=== PATIENT | female | born 1955 | race Hispanic/Latino ===

== ENCOUNTER 2023-12-01 13:03 | Outpatient (RCR) | payer MEDICARE, SELFPAY | END 2023-12-01 23:59 | disposition home or self-care (01) | LOC: RPT 13:03 | PROVIDERS: ATTENDING PHYSICIAN Orthopaedic Surgery; FAMILY PHYSICIAN Family Medicine | DX: M54.16 Radiculopathy, lumbar region (principal); M43.16 Spondylolisthesis, lumbar region; Z73.6 Limitation of activities due to disability | CPT/HCPCS: 97110; 97112; 97140 ==

== ENCOUNTER 2023-12-29 17:50 | Outpatient (RCR) | payer MEDICARE, SELFPAY | END 2023-12-29 23:59 | disposition home or self-care (01) | LOC: RPT 17:50 | PROVIDERS: ATTENDING PHYSICIAN Orthopaedic Surgery; FAMILY PHYSICIAN Family Medicine | DX: M54.16 Radiculopathy, lumbar region (principal); M43.16 Spondylolisthesis, lumbar region; Z73.6 Limitation of activities due to disability | CPT/HCPCS: 97110; 97112; 97140 ==

== ENCOUNTER 2024-01-29 13:54 | Outpatient (RCR) | payer MEDICARE, SELFPAY | END 2024-01-29 23:59 | disposition home or self-care (01) | LOC: RPT 13:54 | PROVIDERS: ATTENDING PHYSICIAN Orthopaedic Surgery; FAMILY PHYSICIAN Family Medicine | DX: M54.16 Radiculopathy, lumbar region (principal); M43.16 Spondylolisthesis, lumbar region; Z73.6 Limitation of activities due to disability | CPT/HCPCS: 97010; 97110; 97112; 97140 ==

== ENCOUNTER 2024-02-23 15:54 | Outpatient (RCR) | payer MEDICARE, SELFPAY | END 2024-02-23 23:59 | disposition home or self-care (01) | LOC: RPT 15:54 | PROVIDERS: ATTENDING PHYSICIAN Orthopaedic Surgery; FAMILY PHYSICIAN Family Medicine | DX: M54.16 Radiculopathy, lumbar region (principal); M43.16 Spondylolisthesis, lumbar region; Z73.6 Limitation of activities due to disability | CPT/HCPCS: 97110; 97112; 97140; 97530 ==

== ENCOUNTER → 2024-04-11 17:02 | Outpatient (REF) | payer MEDICARE, SELFPAY | LOC: WDC 17:02 | PROVIDERS: ATTENDING PHYSICIAN Obstetrics & Gynecology; FAMILY PHYSICIAN Family Medicine | DX: Z12.31 Encounter for screening mammogram for malignant neoplasm of breast (principal) | CPT/HCPCS: 77063; 77067 ==

== ENCOUNTER → 2024-06-09 14:44 | Outpatient (REF) | payer MEDICARE, SELFPAY | LOC: HWRAD 14:44 | PROVIDERS: ATTENDING PHYSICIAN Physician Assistant Medical | DX: R10.9 Unspecified abdominal pain (principal) | CPT/HCPCS: 74177; Q9967 ==

== ENCOUNTER → 2024-08-10 10:45 | Outpatient (REF) | payer MEDICARE, SELFPAY | LOC: HWRAD 10:45 | PROVIDERS: ATTENDING PHYSICIAN Physician Assistant Medical | DX: R05.3 Chronic cough (principal) | CPT/HCPCS: 71046 ==

== ENCOUNTER → 2024-11-30 14:25 | Outpatient (REF) | payer MEDICARE, SELFPAY | LOC: HWRAD 14:25 | PROVIDERS: ATTENDING PHYSICIAN Internal Medicine Critical Care Medicine; FAMILY PHYSICIAN Physician Assistant Medical | DX: J45.991 Cough variant asthma (principal); R06.02 Shortness of breath | CPT/HCPCS: 71250 ==

== ENCOUNTER → 2025-04-12 16:43 | Outpatient (REF) | payer MEDICARE, SELFPAY | LOC: WDC 16:43 | PROVIDERS: ATTENDING PHYSICIAN Obstetrics & Gynecology; FAMILY PHYSICIAN Physician Assistant Medical | DX: Z12.31 Encounter for screening mammogram for malignant neoplasm of breast (principal) | CPT/HCPCS: 77063; 77067 ==

== ENCOUNTER 2025-06-08 06:23 | Day surgery (SDC) | payer MEDICARE, SELFPAY | END 2025-06-08 13:33 | disposition home or self-care (01) | LOC: GI 06:23 | PROVIDERS: ATTENDING PHYSICIAN Specialist; FAMILY PHYSICIAN Physician Assistant Medical | DX: K22.70 Barrett's esophagus without dysplasia (principal); Z13.810 Encounter for screening for upper gastrointestinal disorder | CPT/HCPCS: 43239; 88305 ==

== ENCOUNTER → 2025-10-06 12:56 | Outpatient (REF) | payer MEDICARE, SELFPAY | LOC: RAD 12:56 | PROVIDERS: ATTENDING PHYSICIAN Physician Assistant Medical | DX: E07.9 Disorder of thyroid, unspecified (principal) | CPT/HCPCS: 76536 ==